=== PATIENT | female | born 1995 | race American Indian/Alaskan Native ===

== ENCOUNTER 2017-12-24 18:55 | Emergency (ER) | payer OTHER ==
[2017-12-24 19:32] VITALS: BP 105/71; PULSE 61; TEMP 98; BMI 17.3
--- NOTE | 2017-12-24 19:32 | PDOC ---
Rapid Medical Evaluation Time Seen by Provider: 12/24/17 19:28 Medical Evaluation: 12/24/17 19:28 I have performed a brief in-person evaluation of this patient. The patient presents with a chief complaint of: Pt speaks Luxembourgish. Unable to void x2d. No fever. Similar symptoms 1 year ago, was informed she didn't drink enough fluids. Pertinent physical exam findings:Abd: NT;ND I have ordered the following:UA, UC The patient will proceed to the ED for further evaluation
[2017-12-24] MEDS ORDERED: SODIUM CHLORIDE 1,000 ML IV STA (22:53)
--- NOTE | 2017-12-24 22:57 | PDOC ---
Attending Attestation - Resident Resident Name: JavonseferinoManuel arriaza - ED Attending Attestation I have performed the following: I have examined & evaluated the patient, The case was reviewed & discussed with the resident, I agree w/resident's findings & plan, Exceptions are as noted - HPI HPI: 12/24/17 22:54 22y F no pmhx presents for evluation of 2 days of difficulty urinating, has sensation of urgency and dysuria. has prior hitory of this last year that resolved spontaneously. translation provided from in family member. Pt endorses some abdominal pain this morning that has since resolved. denies any preceding dysuria, foul smelling urine, back pain. exam: abd soft nontender, no CVAT suspect UTI - Physicial Exam PE: 12/25/17 00:05 see above - Medical Decision Making 12/25/17 00:05 ua c/w with UTI will treat with macrobid will have pt fu with PMD I discussed the physical exam findings, ancillary test results and final diagnoses with the patient. I answered all of the patient's questions. The patient was satisfied with the care received and felt comfortable with the discharge plan and treatment plan. The patient will call their primary care physician within 24 hours to arrange follow-up and will return to the Emergency Department with any new, persistent or worsening symptoms.
--- NOTE | 2017-12-24 23:02 | PDOC ---
History of Present Illness - General Chief Complaint: Urinary Problem Stated Complaint: PAIN Time Seen by Provider: 12/24/17 19:28 - History of Present Illness Initial Comments: 12/24/17 23:02 22 year old female with no significant past medical history presents for 2 days of inability to urinate and mild abdominal pain. She states that when she wakes up she has the urge to urinate but is unable. She states this happened before around 1 year ago and her doctor told her to drink water, and it resolved spontaneously. She denies fevers, chills, nausea, vomiting, diarrhea, chest pain , shortness of breath. Allergies: none Smoke: none Alcohol: none Drugs: none Past History - Past Medical History Allergies/Adverse Reactions: Allergies Allergy/AdvReac Type Severity Reaction Status Date / Time No Known Allergies Allergy Verified 12/24/17 19:32 Home Medications: Ambulatory Orders Nitrofurantoin Monohyd/M-Cryst [Macrobid -] 100 mg PO BID #14 capsule 12/25/17 - Suicide/Smoking/Psychosocial Hx Smoking History: Never smoked Have you smoked in the past 12 months: No Information on smoking cessation initiated: No Hx Alcohol Use: No Drug/Substance Use Hx: No Review of Systems - Review of Systems Able to Perform ROS?: Yes Is the patient limited Puerto Rican proficient: Yes Constitutional: No: Chills, Fever, Weakness HEENTM: No: Throat Pain Respiratory: No: Cough, Shortness of Breath Cardiac (ROS): No: Chest Pain, Irregular Heart Rate, Chest Tightness ABD/GI: No: Nausea, Vomiting, Indigestion Musculoskeletal: No: Back Pain, Joint Pain, Muscle Pain, Muscle Weakness Integumentary: No: Rash Neurological: No: Headache *Physical Exam - Vital Signs Last Vital Signs Temp Pulse Resp BP Pulse Ox 98.0 F 61 16 105/71 100 12/24/17 19:29 12/24/17 19:29 12/24/17 19:29 12/24/17 19:29 12/24/17 19:29 - Physical Exam Comments: 12/24/17 23:36 GENERAL: A&Ox3, no acute distress EYES: PERRLA, EOMI ENT: Moist mucus membranes NECK: No JVD LUNGS: CTA, no wheezes HEART: RRR, no murmurs ABDOMEN: Soft, nontender, BS present MUSCULOSKELETAL: No CVA Tenderness EXTREMITIES: 2+ pulses, no edema. NEUROLOGICAL: Cranial nerves II-XII intact. Medical Decision Making - Medical Decision Making 12/24/17 23:37 22 year old female no pmh presents for mild abdominal pain and difficulty urinating -will give 1000cc bolus NS -UA -patient was able to provide a urine sample -U preg 12/24/17 23:47 -awaiting urine results for UA/Upreg -signed out to Dr. Guajardo *DC/Admit/Observation/Transfer Diagnosis at time of Disposition: Acute urinary retention - Discharge Dispostion Disposition: HOME Condition at time of disposition: Stable Decision to Admit order: No - Prescriptions Prescriptions: Nitrofurantoin Monohyd/M-Cryst [Macrobid -] 100 mg PO BID #14 capsule - Referrals - Patient Instructions Additional Instructions: You were seen in the hospital for urinary retention and abdominal pain. Your urine showed that you have a urinary tract infection. Please drink plenty of water. Prescriptions: -We prescribed you an antibiotic Macrobid 100mg twice a day for 7 days. Make sure not to miss doses. Please see your primary care physician within 1 week of discharge, or if you don 't have one, make an appointment with us at [address] [place] [address], [address], [place] [address] ([phone]) If you experience further inability to urinate, fevers, chills, nausea, vomiting, chest pain or shortness of breath, please return to the emergency room immediately - Post Discharge Activity
[2017-12-24 23:49] LABS: URINE APPEARANCE SLCLOUDY; URINE BILIRUBIN NEGATIVE (<2.0 mg/dL); URINE COLOR LTYELLOW; URINE GLUCOSE (UA) NEGATIVE (NEGATIVE); URINE KETONE NEGATIVE (NEGATIVE); URINE NITRITE NEGATIVE (NEGATIVE)
[2017-12-24 23:54] LABS: URINE LEUK ESTERASE 2+ (NEGATIVE); URINE PROTEIN 1+ (NEGATIVE)
[2017-12-24 23:55] LABS: EPI CELLS RARE /HPF (FEW); URINE MUCUS RARE
[2017-12-25] MEDS ORDERED: NITROFURANTOIN MACROCRYSTAL 50 MG CAPSULE (FP) PO SCH (00:30)
[2017-12-25] MEDS ORDERED: NITROFURANTOIN MACROCRYSTAL 50 MG CAPSULE (FP) ONE (00:45)
--- NOTE | 2017-12-28 07:09 | PDOC ---
Patient Follow-up (Call Back) - Post ED Follow - Up Condition at time of discharge: Stable Disposition at time of original discharge: HOME Reason for Call Back: Abnwl. Microbiology (Patient on Macrobid. Final report pending. Prelim shows Staphylococcus coagulase-negative)
== END 2017-12-25 00:54 | disposition home or self-care (01) ==
LOC: JER 18:55
PROC: 3E0337Z Introduction of Electrolytic and Water Balance Substance into Peripheral Vein, Percutaneous Approach (ICD-10-PCS; principal; 2017-12-24)
DX: N39.0 Urinary tract infection, site not specified (principal)
CPT/HCPCS: 81003; 81015; 84703; 87086; 87186; 96360; 99281-25; J7030

== ENCOUNTER 2018-02-25 03:51 | Emergency (ER) | payer OTHER ==
--- NOTE | 2018-02-25 04:04 | PDOC ---
History of Present Illness - General Stated Complaint: WEAKNESS Time Seen by Provider: 02/25/18 04:03 History Source: Patient Exam Limitations: No Limitations - History of Present Illness Initial Comments: 02/25/18 04:22 Pt. is a 22 y/o F , who presents to the ED for weakness today. Pt and family state that she was here last night and she had an IV in place as she received IV fluids and medicine for her nausea and vomiting. Upon discharge, the IV block was taken out and the patient bled from the catheter for approximately 10 seconds. The catheter was then removed and pressure was applied. Pt states that when she was in the car going home, she noticed blood on her shoes. She states that she continued to bleed for approximately 15 minutes and then drove back to the ED for new gauze. She believes that she is weak today from her blood loss yesterday. Admits to dizziness. Denies fevers, chills, SOB, chest pain, numbness and tingling, vaginal bleeding and discharge. Past History - Travel Traveled outside of the country in the last 30 days: No Close contact w/someone who was outside of country & ill: No - Past Medical History Allergies/Adverse Reactions: Allergies Allergy/AdvReac Type Severity Reaction Status Date / Time No Known Allergies Allergy Verified 02/23/18 22:49 Home Medications: Ambulatory Orders Ondansetron HCl [Zofran] 4 mg PO BID #20 tablet 02/24/18 Docusate Sodium [Colace -] 100 mg PO DAILY #7 capsule 02/25/18 COPD: No - Immunization History Immunization Up to Date: Yes - Suicide/Smoking/Psychosocial Hx Smoking History: Never smoked Have you smoked in the past 12 months: No Hx Alcohol Use: No Drug/Substance Use Hx: No Review of Systems - Review of Systems Able to Perform ROS?: Yes Comments:: 02/25/18 04:03 CONSTITUTIONAL: Present: generalized weakness. Absent: fever, chills, diaphoresis, malaise, loss of appetite HEENT: Absent: rhinorrhea, nasal congestion, throat pain, throat swelling, difficulty swallowing, mouth swelling, ear pain, eye pain, visual Changes CARDIOVASCULAR: Absent: chest pain, loss of consciousness, palpitations, irregular heart rate, peripheral edema RESPIRATORY: Absent: cough, shortness of breath, dyspnea with exertion, orthopnea, wheezing, stridor, hemoptysis GASTROINTESTINAL: Absent: abdominal pain, abdominal distension, nausea, vomiting, diarrhea, constipation, melena, hematochezia GENITOURINARY: Absent: dysuria, frequency, urgency, hesitancy, hematuria, flank pain, genital pain MUSCULOSKELETAL: Absent: myalgia, arthralgia, joint swelling SKIN: Absent: rash, itching, pallor HEMATOLOGIC/IMMUNOLOGIC: Absent: easy bleeding, easy bruising, lymphadenopathy, frequent infections ENDOCRINE: Absent: unexplained weight gain, unexplained weight loss, heat intolerance, cold intolerance NEUROLOGIC: Absent: headache, focal weakness or paresthesias, dizziness, unsteady gait, seizure, mental status changes, bladder or bowel incontinence PSYCHIATRIC: Absent: anxiety, depression, suicidal or homicidal ideation, hallucinations. Is the patient limited Sinhala proficient: No *Physical Exam - Physical Exam Comments: 02/25/18 04:04 GENERAL: Well developed, well nourished. Awake and alert. No acute distress. HEENT: Normocephalic, atraumatic. PERRLA, EOMI. No conjunctival pallor. Sclera are non- icteric. Moist mucous membranes. Oropharynx is clear. NECK: Supple. Full ROM. No JVD. Carotid pulses 2+ and symmetric, without bruits. No thyromegaly. No lymphadenopathy. CARDIOVASCULAR: Regular rate and rhythm. No murmurs, rubs, or gallops. Distal pulses are 2+ and symmetric. PULMONARY: No evidence of respiratory distress. Lungs clear to auscultation bilaterally. No wheezing, rales or rhonchi. ABDOMINAL: Soft. Non-tender. Non-distended. No rebound or guarding. No organomegaly. Normoactive bowel sounds. MUSCULOSKELETAL Normal range of motion at all joints. No bony deformities or tenderness. No CVA tenderness. EXTREMITIES: No cyanosis. No clubbing. No edema. No calf tenderness. SKIN: Warm and dry. Normal capillary refill. No rashes. No jaundice. NEUROLOGICAL: Alert, awake, appropriate. Cranial nerves 2-12 intact. No deficits to light touch and temperature in face, upper extremities and lower extremities. No motor deficits in the in face, upper extremities and lower extremities. Normoreflexic in the upper and lower extremities. Normal speech. Toes are down- going bilaterally. Gait is normal without ataxia. PSYCHIATRIC: Cooperative. Good eye contact. Appropriate mood and affect. ED Treatment Course - LABORATORY CBC & Chemistry Diagram: 02/25/18 04:45 02/25/18 04:45 Medical Decision Making - Medical Decision Making 02/25/18 04:27 Pt is a 22 y/o F who presents to the ED for weakness today. -Denies vaginal bleeding/discharge -Pt states she bled for 15 minutes yesterday after her IV was removed -Still feels weak -pt appears well, mucous membranes are moist -will draw basic labs to evaluate H&H and electrolytes. -new iv placed, fluids started 02/25/18 05:25 -dizziness improved after fluids -H&H stable with no drop from yesterday's labs. -DC home, return precautions given. Pt understands all dc instructions and all questions were answered. *DC/Admit/Observation/Transfer Diagnosis at time of Disposition: Weakness - Discharge Dispostion Disposition: HOME Condition at time of disposition: Good Decision to Admit order: No - Referrals Referrals: Amy Reyes MD [Staff Physician] - - Patient Instructions Printed Discharge Instructions: DI for Hyperemesis Gravidarum Additional Instructions: Your blood work was normal today. Your blood levels were normal despite bleeding yesterday. Please drink plenty of fluids Take your medicine for nausea as previously prescribed. Continue vitamins. Follow the dosing instruction on the bottle You may take colace as needed for constipation Follow up with your permaculture designer this week Return to the ED for any new or concerning symptoms. - Post Discharge Activity
[2018-02-25] MEDS ORDERED: SODIUM CHLORIDE 1,000 ML IV STA (04:16)
[2018-02-25 04:53] LABS: BASO % 0.2 % (0-2.0); EOS % 0.2 % (0-4.5); HEMOGLOBIN 10.9 GM/dL (10.7-15.3); LYMPH % 14.8 % (8-40); MCH 29.5 pg (25.7-33.7); MCHC 35.2 g/dl (32.0-36.0); MEAN CELL VOLUME 83.8 fl (80-96); MONO % 4.6 % (3.8-10.2); NEUT % 80.2 % (42.8-82.8); PLATELET COUNT 185 K/MM3 (134-434); RDW 12.8 % (11.6-15.6); WHITE BLOOD COUNT 9.3 K/mm3 (4.0-10.0)
[2018-02-25 05:08] LABS: INR 1.09 (0.83-1.09); PROTHROMBIN TIME (PATIENT) 12.3 SEC (9.7-13.0)
[2018-02-25 05:16] LABS: ALBUMIN 3.6 g/dl (3.4-5.0); ANION GAP 7 MMOL/L (8-16); BILIRUBIN,TOTAL 0.3 mg/dL (0.2-1.0); BLOOD UREA NITROGEN 10 mg/dL (7-18); CALCIUM 8.5 mg/dL (8.5-10.1); CHLORIDE 108 mmol/L (98-107); CO2 24 mmol/L (21-32); CREATININE 0.5 mg/dL (0.55-1.02); GLUCOSE,RANDOM 112 mg/dL (74-106); POTASSIUM 3.7 mmol/L (3.5-5.1); SGOT/AST 8 U/L (15-37); SGPT/ALT 12 U/L (12-78); SODIUM 139 mmol/L (136-145); TOT PROT 6.6 g/dl (6.4-8.2)
[2018-02-25 05:17] LABS: ALK PHOS 34 U/L (45-117)
[2018-02-25 05:23] VITALS: BP 100/43; PULSE 66; TEMP 98.2; BMI 19.1
== END 2018-02-25 05:40 | disposition home or self-care (01) ==
LOC: JER 03:51
PROC: 3E0337Z Introduction of Electrolytic and Water Balance Substance into Peripheral Vein, Percutaneous Approach (ICD-10-PCS; principal; 2018-02-25)
DX: R53.1 Weakness (principal)
CPT/HCPCS: 36415; 80053; 85025; 85610; 86850; 86900; 86901; 96360; 99281-25; J7030